=== PATIENT | male | born 1945 | race Caucasian/White ===

== ENCOUNTER 2019-03-11 08:16 | Outpatient (CLI) | payer MEDICARE | END 2019-03-11 23:59 | disposition home or self-care (01) | LOC: ROC 08:16 | PROVIDERS: ATTEND Radiology Radiation Oncology | DX: C61 Malignant neoplasm of prostate (principal) | CPT/HCPCS: G0463 ==

== ENCOUNTER 2019-03-12 07:49 | Outpatient (CLI) | payer MEDICARE ==
[2019-03-12] MEDS ORDERED: FENTANYL PF 100 MCG/2ML ONE (11:00)
[2019-03-12] MEDS ORDERED: LIDOCAINE/PF 1%, 30ML ONE (11:00)
[2019-03-12] MEDS ORDERED: MIDAZOLAM 1 MG/ML, 5ML ONE (11:00)
== END 2019-03-12 23:59 | disposition home or self-care (01) ==
LOC: ROC 07:49
PROVIDERS: ATTEND Radiology Radiation Oncology
DX: C61 Malignant neoplasm of prostate (principal)
CPT/HCPCS: 55876; 76942; 77332; 99152; A4648; J2250; J3010

== ENCOUNTER 2019-03-18 07:26 | Outpatient (CLI) | payer MEDICARE | END 2019-03-18 23:59 | disposition home or self-care (01) | LOC: CFH 07:26 | PROVIDERS: ATTEND Radiology Radiation Oncology | DX: C61 Malignant neoplasm of prostate (principal) | CPT/HCPCS: 72195 ==